=== PATIENT | female | born 1935 | race Hispanic/Latino ===

== ENCOUNTER 2018-05-30 00:20 | Inpatient (IN) | payer OTHER, MEDICARE ==
[2018-05-30] MEDS ORDERED: ZOFRAN IV ONE (01:51)
[2018-05-30] MEDS ORDERED: SUBLIMAZE IV ONE (01:51)
[2018-05-30] MEDS ORDERED: PEPCID IV ONE (01:52)
[2018-05-30 01:55] LABS: BUN/Creatinine Ratio 46; Blood Urea Nitrogen 23 mg/dL (7-17); Calcium 9.8 mg/dL (8.4-10.2); Hemolysis Index 9
[2018-05-30 02:09] LABS: Basophils % (Auto) 0.3 % (0.0-1.8); Eosinophils % (Auto) 0.1 % (0.0-4.3); Hematocrit 41.5 % (30.3-42.9); Hemoglobin 13.7 gm/dl (10.1-14.3); Lymphocytes # (Auto) 0.7 K/mm3 (1.2-5.4); Lymphocytes % (Auto) 6.6 % (13.4-35.0); Mean Corpuscular HGB Conc 33 % (30-34); Mean Corpuscular Hemoglobin 29 pg (28-32); Mean Corpuscular Volume 89 fl (79-97); Monocytes # (Auto) 0.7 K/mm3 (0.0-0.8); Monocytes % (Auto) 6.5 % (0.0-7.3); Platelet Count 181 K/mm3 (140-440); Red Blood Count 4.69 M/mm3 (3.65-5.03); Red Cell Distribution Width 14.8 % (13.2-15.2)
--- NOTE | 2018-05-30 02:10 | XRay Report ---
FINAL REPORT EXAM: XR CHEST 1V AP HISTORY: chest pain COMPARISON: None available. FINDINGS: Frontal view(s) of the chest obtained. Cardiac silhouette within normal limits. Shallow inspiration. Calcification aortic arch. No gross consolidation or effusion. No pneumothorax. IMPRESSION: No grossly acute findings.
--- NOTE | 2018-05-30 02:23 | Emergency Department Report ---
HPI - General Chief Complaint: Chest Pain Time Seen by Provider: 05/30/18 00:50 - HPI HPI: The patient is a 82-year-old female with a history of coronary artery disease, presents for evaluation of chest pain. The patient reports bilateral chest pain that began earlier tonight, tightness like in quality, moderate to severe and constant for the past one to 2 hours prior to arrival. She shares that she experienced GERD/acid reflux-like atypical chest pain symptoms when diagnosed with her previous [place], at which time she received multivessel stent placement. She has not received a stress test within the past year. The patient denies fever, trauma to the chest, syncope, cough, hemoptysis, unilateral leg swelling , recent immobilization, history of DVT or PE. ED Past Medical Hx - Past Medical History Previous Medical History?: Yes Hx Hypertension: Yes (12YRS) Hx Heart Attack/AMI: Yes (2014) Hx GERD: Yes Hx Arthritis: Yes (knees and neck) Hx Headaches / Migraines: Yes (TENSION HEADACHES) - Surgical History Past Surgical History?: Yes Hx Coronary Stent: Yes (X 3) Hx Cholecystectomy: Yes Additional Surgical History: cataract lynette - Social History Smoking Status: Former Smoker Substance Use Type: None - Medications Home Medications: Home Medications Medication Instructions Recorded Confirmed Last Taken Type traMADol [Ultram 50 MG tab] 50 mg PO Q8H PRN 09/01/15 05/30/18 1 Day Ago History ~05/29/18 AtorvaSTATin [Lipitor] 80 mg PO QHS 07/07/16 05/30/18 1 Day Ago History ~05/29/18 Carvedilol 6.25 mg PO BID 07/07/16 05/30/18 1 Day Ago History ~05/29/18 Lisinopril 5 mg PO QDAY 07/07/16 05/30/18 1 Day Ago History ~05/29/18 Ascorbic Acid [Vitamin C] 1,000 mg PO QDAY 05/30/18 05/30/18 1 Day Ago History ~05/29/18 Aspirin [Aspirin BABY CHEW TAB] 81 mg PO QDAY 05/30/18 05/30/18 1 Day Ago History ~05/29/18 Cholecalciferol Vit D3 [Vitamin D3] 1,000 unit PO 3XW 05/30/18 05/30/18 Unknown History ED Review of Systems ROS: Stated complaint: CHEST PAIN Other details as noted in HPI Constitutional: denies: fever ENT: denies: throat or neck pain Respiratory: denies: cough, shortness of breath Cardiovascular: reports chest pain Endocrine: denies unexplained weight loss or gain Gastrointestinal: denies: abdominal pain, nausea Genitourinary: denies: dysuria Musculoskeletal: denies: leg swelling Skin: denies: rash Neurological: denies: headache Hematological/Lymphatic: denies: easy bleeding or easy bruising Psych: denies sadness or hopelessness Physical Exam - Physical Exam Vital Signs: Vital Signs 05/30/18 00:55 Temperature 98.5 F Pulse Rate 84 Respiratory 16 Rate Blood Pressure 185/79 Blood Pressure 185/79 [Right] O2 Sat by Pulse 96 Oximetry Physical Exam: General: well-nourished, well-developed, no acute distress Head: Normocephalic, atraumatic Eyes: normal sclera ENT: Mucous membranes are pink and moist Neck: trachea midline, neck supple, No neck stiffness, no cervical adenopathy Respiratory: Breath sounds equal bilaterally, no wheezing, rales, or rhonchi Cardio: S1 and S2 present, no murmurs, rubs, gallops, capillary refill is brisk Abdomen: Normoactive bowel sounds, soft abdomen, no rigidity, no guarding or rebound tenderness Musc: No pitting edema Skin: No rash Neuro: no facial drooping, normal speech Psych: Normal affect ED Course Vital Signs 05/30/18 00:55 Temperature 98.5 F Pulse Rate 84 Respiratory 16 Rate Blood Pressure 185/79 Blood Pressure 185/79 [Right] O2 Sat by Pulse 96 Oximetry ED Medical Decision Making - Lab Data Result diagrams: 05/30/18 01:13 05/30/18 01:13 - Medical Decision Making The patient was seen and examined by myself. The patient is placed on a director of cardiac cath lab and continuous pulse ox. On initial evaluation, the patient was found to be in no distress. EKG was negative for findings suggestive of acute cardiac infarct. The patient is IV fentanyl for her pain. Labs and imaging are obtained. Chest x-ray is negative for pneumothorax, focal consolidation, pulmonary vascular congestion, pleural effusion, or other obvious acute cardiopulmonary disease process. Lab results were non-revealing including negative troponin, WBC, hemoglobin, hematocrit, electrolytes, renal function. The patient was reevaluated and reported that their symptoms were improved. As the patient has chest pain and risk factors for development of acute coronary event, the patient will be admitted for close cardiopulmonary monitoring, serial troponins, and evaluation by cardiology. The physician on-call was contacted. They presented to the emergency department and evaluated the patient. They agreed to admit the patient. The ED admit order was placed. The patient was admitted in guarded condition. Critical care attestation.: If time is entered above; I have spent that time in minutes in the direct care of this critically ill patient, excluding procedure time. ED Disposition Clinical Impression: Acute chest pain Disposition: [id number] OP ADMIT IP TO THIS HOSP Is pt being admited?: Yes Does the pt Need Aspirin: Yes Condition: Fair Instructions: Chest Pain (ED) Referrals: PRIMARY CARE, [Primary Care Provider] - 3-5 Days Time of Disposition: 02:22
[2018-05-30] MEDS ORDERED: ZOFRAN IV PRN (04:47)
[2018-05-30] MEDS ORDERED: TYLENOL PO PRN (04:47)
[2018-05-30] MEDS ORDERED: SODIUM CHLORIDE FLUSH SYRINGE 10 ML IV PRN (04:47)
--- NOTE | 2018-05-30 04:49 | History and Physical Report ---
History of Present Illness Date of examination: 05/30/18 History of present illness: 82-year-old woman with a history of coronary artery disease, 2 stents placed in 2016, hypertension, GERD comes to the emergency room complaining of chest pain located in the bilateral lateral rib areawhich she described as a hurting pain that started today. Pain is constant, intensity 5/10, no radiation, he cannot identify exacerbating or relieving factors. No nausea vomiting, diaphoresis, shortness of breath Review of systems Constitutional: no weight loss, chills, fever Ears, eyes, nose, mouth and throat: no nasal congestion, no nasal discharge, no sinus pressure, no vision change, no red eye. Neck: No neck pain or rigidity. Cardiovascular: no palpitations Respiratory: no cough, shortness of breath Gastrointestinal: no abdominal pain hematochezia Genitourinary : no frequency , no hematuria Musculoskeletal: no joint swelling or muscle ache Integumentary: no rash, no pruritis Neurological: no parathesias, no numbness, no focal weakness Endocrine: no cold or heat intolerance, no polyuria or polydipsia Hematologic/Lymphatic: no easy bruising, no easy bleeding, no gland swelling Allergic/Immunologic: no urticaria, no angioedema. PAST MEDICAL HISTORY: Coronary artery disease, hypertension, GERD PAST SURGICAL HISTORY: Cataract extraction, left arm SOCIAL HISTORY: No alcohol, no drugs, tobacco FAMILY HISTORY: Hypertension Medications and Allergies Allergies Allergy/AdvReac Type Severity Reaction Status Date / Time NSAIDS (Non-Steroidal Allergy RASH,ITCHIN Verified 07/07/16 12:41 Anti-Inflamma G,NAUSEA Home Medications Medication Instructions Recorded Confirmed Last Taken Type traMADol [Ultram 50 MG tab] 50 mg PO Q8H PRN 09/01/15 05/30/18 1 Day Ago History ~05/29/18 AtorvaSTATin [Lipitor] 80 mg PO QHS 07/07/16 05/30/18 1 Day Ago History ~05/29/18 Carvedilol 6.25 mg PO BID 07/07/16 05/30/18 1 Day Ago History ~05/29/18 Lisinopril 5 mg PO QDAY 07/07/16 05/30/18 1 Day Ago History ~05/29/18 Ascorbic Acid [Vitamin C] 1,000 mg PO QDAY 05/30/18 05/30/18 1 Day Ago History ~05/29/18 Aspirin [Aspirin BABY CHEW TAB] 81 mg PO QDAY 05/30/18 05/30/18 1 Day Ago History ~05/29/18 Cholecalciferol Vit D3 [Vitamin D3] 1,000 unit PO 3XW 05/30/18 05/30/18 Unknown History Exam - Physical Exam Narrative exam: Gen. appearance: Patient lying in bed, no apparent distress HEENT: Normocephalic, atraumatic, pupils equally round and reactive to light, extraocular movement intact, and no sclericterus,. No JVD or thyromegaly or nodule,neck supple, no carotid bruit ,mucous membranes moist, no exudate or erythema Heart: S1, S2, regular rate and rhythm Lungs: Clear bilaterally, breathing comfortable Abdomen: Positive bowel sounds, non-tender, nondistended, no organomegaly Extremity:no edema cyanosis, clubbing Skin: no rash, dry, warm Neuro: Oriented 3, cranial nerves II-12 intact, speech is fluent, motor and sensory intact - Constitutional Vitals: Temp Pulse Resp BP Pulse Ox 98.8 F 88 29 H 152/56 93 05/30/18 00:55 05/30/18 04:00 05/30/18 04:00 05/30/18 04:00 05/30/18 04:00 Results - Labs CBC & Chem 7: 05/30/18 01:13 05/30/18 01:13 Labs: Abnormal lab results 05/30/18 05/30/18 Range/Units 01:13 01:13 Lymph % (Auto) 6.6 L (13.4-35.0) % Lymph # 0.7 L (1.2-5.4) K/mm3 Seg Neutrophils % 86.5 H (40.0-70.0) % Seg Neutrophils # 9.0 H (1.8-7.7) K/mm3 BUN 23 H (7-17) mg/dL Creatinine 0.5 L (0.7-1.2) mg/dL Glucose 149 H (65-100) mg/dL - Imaging and Cardiology EKG: image reviewed Chest x-ray: report reviewed Assessment and Plan Assessment Unstable angina Coronary artery disease Hypertension GERD Plan Admit to medicine Check cardiac enzymes, d-dimer, consult cardiology Continue appropriate outpatient medications DVT prophylaxis
[2018-05-30] MEDS ORDERED: LOVENOX SUB-Q SCH (10:00)
[2018-05-30] MEDS: VITAMIN C PO SCH (10:38)
[2018-05-30] MEDS: ZESTRIL PO SCH (10:38)
[2018-05-30] MEDS: BABY ASPIRIN PO SCH (10:38)
[2018-05-30] MEDS: SODIUM CHLORIDE FLUSH SYRINGE 10 ML IV SCH ×2 (10:38→22:45)
[2018-05-30] MEDS: COREG PO SCH ×2 (10:39→22:43)
--- NOTE | 2018-05-30 13:04 | Consultation ---
History of Present Illness Consult date: 05/30/18 Consult reason: chest pain History of present illness: This is an 82 year old woman with a cardiac history of coronary artery disease and is followed by [facility]. Patient presented to this hospital with complaints of chest pain thus this cardiac consultation. Patient describes pain as bilateral side pain associated with nausea and vomiting. She denies shortness of breath and palpitations. She denies syncope and there were no recent injuries or falls. Chest x-ray is negative. 12 lead ECG is benign, a normal sinus rhythm. Further evaluation with a ventilation perfusion scan reports a intermediate probability for pulmonary embolus. Past History Past Medical History: CAD, GERD Medications and Allergies Allergies Allergy/AdvReac Type Severity Reaction Status Date / Time NSAIDS (Non-Steroidal Allergy RASH,ITCHIN Verified 07/07/16 12:41 Anti-Inflamma G,NAUSEA Home Medications Medication Instructions Recorded Confirmed Last Taken Type traMADol [Ultram 50 MG tab] 50 mg PO Q8H PRN 09/01/15 05/30/18 1 Day Ago History ~05/29/18 AtorvaSTATin [Lipitor] 80 mg PO QHS 07/07/16 05/30/18 1 Day Ago History ~05/29/18 Carvedilol 6.25 mg PO BID 07/07/16 05/30/18 1 Day Ago History ~05/29/18 Lisinopril 5 mg PO QDAY 07/07/16 05/30/18 1 Day Ago History ~05/29/18 Ascorbic Acid [Vitamin C] 1,000 mg PO QDAY 05/30/18 05/30/18 1 Day Ago History ~05/29/18 Aspirin [Aspirin BABY CHEW TAB] 81 mg PO QDAY 05/30/18 05/30/18 1 Day Ago History ~05/29/18 Cholecalciferol Vit D3 [Vitamin D3] 1,000 unit PO 3XW 05/30/18 05/30/18 Unknown History Active Meds: Active Medications Acetaminophen (Tylenol) 650 mg PO Q4H PRN PRN Reason: Pain MILD(1-3)/Fever >100.5/[place] Ascorbic Acid (Vitamin C) 1,[address] [facility] Last Admin: 05/30/18 10:38 Dose: 1,000 mg Aspirin (Baby Aspirin) [address] [facility] Last Admin: 05/30/18 10:38 Dose: 81 mg Atorvastatin Calcium (Lipitor) [address] [facility] Carvedilol (Coreg) 6.[address] [facility] Last Admin: 05/30/18 10:39 Dose: Not Given Enoxaparin Sodium (Lovenox) 40 mg SUB-Q QDAY [facility] Last Admin: 05/30/18 10:38 Dose: 40 mg Lisinopril (Zestril) [address] [facility] Last Admin: 05/30/18 10:38 Dose: Not Given Ondansetron HCl (Zofran) 4 mg IV Q8H PRN PRN Reason: Nausea And Vomiting Sodium Chloride (Sodium Chloride Flush Syringe 10 Ml) [address] [facility] Last Admin: 05/30/18 10:38 Dose: 10 ml Sodium Chloride (Sodium Chloride Flush Syringe 10 Ml) 10 ml IV PRN PRN PRN Reason: LINE FLUSH Physical Examination Vital Signs Pulse Ox 95 05/30/18 00:43 General appearance: no acute distress HEENT: Positive: PERRL Cardiac: Positive: Reg Rate and Rhythm Results 05/30/18 01:13 05/30/18 01:13 CBC 05/30/18 Range/Units 01:13 WBC 10.4 (4.5-11.0) K/mm3 RBC 4.69 (3.65-5.03) M/mm3 Hgb 13.7 (10.1-14.3) gm/dl Hct 41.5 (30.3-42.9) % Plt Count 181 (140-440) K/mm3 Lymph # 0.7 L (1.2-5.4) K/mm3 [place] # 0.7 (0.0-0.8) K/mm3 Eos # 0.0 (0.0-0.4) K/mm3 Baso # 0.0 (0.0-0.1) K/mm3 Comprehensive Metabolic Panel 05/30/18 Range/Units 01:13 Sodium 142 (137-145) mmol/L Potassium 4.2 (3.6-5.0) mmol/L Chloride 100.1 (98-107) mmol/L Carbon Dioxide 27 (22-30) mmol/L BUN 23 H (7-17) mg/dL Creatinine 0.5 L (0.7-1.2) mg/dL Glucose 149 H (65-100) mg/dL Calcium 9.8 (8.4-10.2) mg/dL Assessment and Plan Chest pain intermediate probability for PE Hx of CAD GERD Recommend: Primary physician for further PE workup and management.
--- NOTE | 2018-05-30 14:52 | Nuclear Medicine Report ---
LUNG SCAN, VENTILATION AND PERFUSION: History: Chest pain, elevated d-dimer. Technique: 5mci of Tc99m MAA was infused for the perfusion images. 15mci XE 133 gas was inhaled for the ventilatory images. Correlation is made with a chest x-ray dated 05/30/18. Findings: Inhalation of Xenon gas demonstrates a normal distribution of the activity throughout both lungs. The washout phases show moderate retention of the radiotracer bilaterally suggestive of COPD. After injection of Technetium 99m macroaggregated albumin gamma camera imaging of the lungs in multiple projections demonstrates a heterogeneous distribution of the radiotracer. Small perfusion defects are suggested in the posterior left upper lobe and lateral right lung. IMPRESSION: Intermediate probability for pulmonary embolus. Consider further evaluation with CTA chest. COPD.
--- NOTE | 2018-05-30 15:17 | Event Note ---
Date: 05/30/18 Patient admitted this morning with chest pain. D-dimer was elevated and VQ scan was done showed moderate to high priority for PE. Patient started on heparin drip and will do CTA for confirmation. H&P, imaging and labs were reviewed. Continue management per H&P.
[2018-05-30] MEDS ORDERED: HEPARIN/ 0.45% NACL-25,000 UNIT/500 ML 25,000 UNIT/500 ML BAG IV SCH (16:00)
--- NOTE | 2018-05-30 16:57 | Cat Scan Report ---
FINAL REPORT EXAM: CT ANGIO CHEST HISTORY: chest pain TECHNIQUE: Enhanced CT of the chest at 2.5 mm axial intervals following a pulmonary embolism protocol. Coronal and sagittal imaging were also obtained. Coronal oblique MIP projections were obtained. Contrast: 100 ml of Omnipaque 350 given IV. PRIORS: None. FINDINGS: There is no evidence for pulmonary embolism in the main pulmonary artery, right and left pulmonary arteries or their major distributions. However, CT does not exclude distal pulmonary emboli. Minimal linear atelectasis in the right lung base is seen. Otherwise, the lung parenchyma are expanded and clear with no evidence for parenchymal nodules, congestion, or pleural effusion. There is no evidence for mediastinal, hilar, or axillary adenopathy. Cardiovascular structures are within normal limits. No evidence for ventricular chamber enlargement is seen. Moderate calcification of the aorta is seen. Images through the lung bases include the upper abdomen which show a 2.0 cm cyst in the upper pole right kidney. Cortical thinning in the left kidney is noted. Gallstones in the gallbladder are present. 1.4 cm low-density focus in the left adrenal gland is consistent with a nodule. 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 Degenerative disc narrowing from C4 through C7 is also noted. IMPRESSION: 1. no evidence for pulmonary embolism. 2. Right basilar atelectasis 3. Nodule in the left adrenal gland 4. Cyst in the right kidney 5. Cholelithiasis
[2018-05-30 20:32] LABS: Hematocrit 38.8 % (30.3-42.9); Hemoglobin 12.7 gm/dl (10.1-14.3)
[2018-05-30] MEDS ORDERED: ALUM-MAG HYDROX-SIMETH 200-200-20MG/5ML PO PRN (20:37)
[2018-05-30 20:43] LABS: INR 1.19 (0.87-1.13)
[2018-05-30 20:55] LABS: Partial Thromboplastin Time 67.1 Sec. (24.2-36.6)
[2018-05-31 07:42] LABS: Basophils % (Auto) 0.2 % (0.0-1.8); Eosinophils # (Auto) 0.1 K/mm3 (0.0-0.4); Eosinophils % (Auto) 1.2 % (0.0-4.3); Hematocrit 37.5 % (30.3-42.9); Hemoglobin 12.5 gm/dl (10.1-14.3); Lymphocytes # (Auto) 0.8 K/mm3 (1.2-5.4); Lymphocytes % (Auto) 8.8 % (13.4-35.0); Mean Corpuscular HGB Conc 33 % (30-34); Mean Corpuscular Hemoglobin 29 pg (28-32); Mean Corpuscular Volume 88 fl (79-97); Monocytes # (Auto) 0.8 K/mm3 (0.0-0.8); Monocytes % (Auto) 8.4 % (0.0-7.3); Platelet Count 154 K/mm3 (140-440); Red Blood Count 4.26 M/mm3 (3.65-5.03); Red Cell Distribution Width 15.3 % (13.2-15.2)
[2018-05-31 07:51] LABS: BUN/Creatinine Ratio 44; Blood Urea Nitrogen 22 mg/dL (7-17); Calcium 8.6 mg/dL (8.4-10.2); Hemolysis Index 3
--- NOTE | 2018-05-31 09:37 | Progress Note ---
Assessment and Plan Chest pain no evidence of pulmonary embolism by CTA Hx of CAD GERD Conservative cardiac management. 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 Subjective Date of service: 05/31/18 Interval history: Patient denies chest pain. Objective Vital Signs Temp Pulse Resp Resp BP BP Pulse Ox 05/31/18 09:03 98.0 F 75 16 141/54 96 05/31/18 08:14 95 05/31/18 05:09 98.9 F 72 20 135/51 94 05/31/18 01:04 99.2 F 69 20 122/52 96 05/30/18 22:48 98.8 F 76 143/61 95 05/30/18 22:43 73 143/61 05/30/18 21:40 96 05/30/18 21:05 70 05/30/18 17:20 99.1 F 97 H 20 126/48 96 05/30/18 15:15 74 21 114/34 96 05/30/18 13:58 81 05/30/18 13:51 21 05/30/18 13:10 98.1 F 81 24 134/50 93 05/30/18 12:50 78 23 124/41 93 05/30/18 12:28 119/51 95 05/30/18 11:00 79 17 119/51 95 05/30/18 10:39 70 115/45 05/30/18 10:38 70 115/45 05/30/18 10:00 77 22 126/45 91 05/30/18 09:37 98 F 90 16 133/53 96 - Physical Examination General: No Apparent Distress HEENT: Positive: PERRL Cardiac: Positive: Reg Rate and Rhythm - Labs and Meds Coagulation 05/30/18 Range/Units 19:08 PT 15.8 H (12.2-14.9) Sec. INR 1.19 H (0.87-1.13) APTT 67.1 H* (24.2-36.6) Sec. CBC 05/30/18 05/31/18 Range/Units 19:08 05:33 WBC 9.6 (4.5-11.0) K/mm3 RBC 4.26 (3.65-5.03) M/mm3 Hgb 12.7 12.5 (10.1-14.3) gm/dl Hct 38.8 37.5 (30.3-42.9) % Plt Count 175 154 (140-440) K/mm3 Lymph # 0.8 L (1.2-5.4) K/mm3 [place] # 0.8 (0.0-0.8) K/mm3 Eos # 0.1 (0.0-0.4) K/mm3 Baso # 0.0 (0.0-0.1) K/mm3 Comprehensive Metabolic Panel 05/31/18 Range/Units 05:37 Sodium 139 (137-145) mmol/L Potassium 3.6 (3.6-5.0) mmol/L Chloride 101.5 (98-107) mmol/L Carbon Dioxide 26 (22-30) mmol/L BUN 22 H (7-17) mg/dL Creatinine 0.5 L (0.7-1.2) mg/dL Glucose 106 H (65-100) mg/dL Calcium 8.6 (8.4-10.2) mg/dL - Imaging and Cardiology EKG: image reviewed
[2018-05-31] MEDS ORDERED: PROTONIX PO SCH (10:00)
[2018-05-31] MEDS: BABY ASPIRIN PO SCH (10:45)
[2018-05-31] MEDS: COREG PO SCH (10:46)
[2018-05-31] MEDS: ZESTRIL PO SCH (10:46)
[2018-05-31] MEDS: VITAMIN C PO SCH (10:46)
[2018-05-31] MEDS: SODIUM CHLORIDE FLUSH SYRINGE 10 ML IV SCH (10:47)
--- NOTE | 2018-05-31 12:06 | Discharge Summary ---
Providers - Providers Date of Admission: 05/30/18 04:47 Attending physician: DANNI SLATER MD 05/30/18 04:47 Consult to Physician [CONS] Routine Comment: Consulting Provider: LYNN PALACIO Physician Instructions: Reason For Exam: ua Primary care physician: CONVEY[facility]ER Hospitalization Reason for admission: Chest pain Condition: Stable Pertinent studies: VQ scan moderate probability for PE CTA no evidence of PE Hospital course: Admission H&P 82-year-old woman with a history of coronary artery disease, 2 stents placed in 2016, hypertension, GERD comes to the emergency room complaining of chest pain located in the bilateral lateral rib areawhich she described as a hurting pain that started today. Pain is constant, intensity 5/10, no radiation, he cannot identify exacerbating or relieving factors. No nausea vomiting, diaphoresis, shortness of breath. Patient was admitted to the floor and V/Q scan showed moderate poorly For PE, patient was started on heparin and later discontinued after CTA ruled out PE. Patient's chest pain subsided. Cardiac enzymes were negative. Cardiology consulted and recommended no further cardiac workup. Patient was followed at [facility] and advised follow-up within 3-5 days with her dry wall installer. Patient is hemodynamically stable with temperature discharge. Disposition: -01 TO HOME OR SELFCARE Time spent for discharge: 34 minutes - Discharge Diagnoses (1) Acute chest pain Status: Acute (2) Hypertension Status: Chronic Qualifiers: Hypertension type: essential hypertension Qualified Code(s): I10 - Essential (primary) hypertension Core Measure Documentation - Palliative Care Palliative Care/ Comfort Measures: Not Applicable - Core Measures Any of the following diagnoses?: none Exam - Physical Exam Narrative exam: Not in cardiopulmonary distress. The patient appeared well nourished and normally developed. Vital signs as documented. Head exam is unremarkable. No scleral icterus . Neck is without jugular venous distension, thyromegaly, or carotid bruits. Lungs are clear to auscultation. Cardiac exam reveals regular rate and Rhythm. First and second heart sounds normal. No murmurs, rubs or gallops. Abdominal exam reveals normal bowel sounds, no masses, no organomegaly and no aortic enlargement. Extremities are nonedematous and both femoral and pedal pulses are normal. CHANNEL EXECUTIVE: Alert and oriented 3. No focal weakness. - Constitutional Vitals: Temp Pulse Resp BP Pulse Ox 98.0 F 75 16 141/54 96 05/31/18 09:03 05/31/18 09:03 05/31/18 09:03 05/31/18 09:03 05/31/18 09:03 Plan Activity: no restrictions Weight Bearing Status: Full Weight Bearing Diet: low cholesterol, low salt Additional Instructions: Patient said she will call her PCP and Paratransit Driver to make an appointment Follow up with: PRIMARY CAREMD [Primary Care Provider] - 3-5 Days Forms: Discharge Signature Page
[2018-05-31 13:09] VITALS: BP 110/53
== END 2018-05-31 16:48 | disposition home or self-care (01) | DRG 303 ==
LOC: ED 00:20 → 4A 04:47
PROVIDERS: ADMIT Internal Medicine; ATTEND Internal Medicine
DX: I25.110 Atherosclerotic heart disease of native coronary artery with unstable angina pectoris (principal); I10 Essential (primary) hypertension; K21.9 Gastro-esophageal reflux disease without esophagitis; G43.909 Migraine, unspecified, not intractable, without status migrainosus; M17.0 Bilateral primary osteoarthritis of knee; Z95.5 Presence of coronary angioplasty implant and graft; I25.2 Old myocardial infarction; Z98.42 Cataract extraction status, left eye; Z98.41 Cataract extraction status, right eye; Z87.891 Personal history of nicotine dependence; Z79.82 Long term (current) use of aspirin; Z82.49 Family history of ischemic heart disease and other diseases of the circulatory system; Z88.8 Allergy status to other drugs, medicaments and biological substances
CPT/HCPCS: 36415; 71045; 71275; 78582; 80048; 83880; 84484; 85014; 85018; 85025; 85049; 85379; 85520; 85610; 85730; 93005; 93010; 94760; A9270-GY; A9540; A9558; J1644; J1650; J2405; J3010; Q9967